=== PATIENT | male | born 1975 | race Caucasian/White ===

== ENCOUNTER → 2017-10-09 | Outpatient (CLI) | payer OTHER ==
[~2017-10-09] MED LIST: AZOR 10-40 MG1 EACH PO; INTEGRA F CAPS1 EACH PO; LEVSIN/SL0.125 MG PO; PERCOCET 5-3251 EACH PO
== END | disposition home or self-care (01) ==
LOC: TOM 10-02 07:45
DX: C18.7 Malignant neoplasm of sigmoid colon (principal)

== ENCOUNTER 2018-11-16 07:30 | Day surgery (SDC) | payer OTHER | END 2018-11-16 14:55 | disposition home or self-care (01) | LOC: AMB-ENDOS 07:30 | DX: K63.5 Polyp of colon (principal); K57.30 Diverticulosis of large intestine without perforation or abscess without bleeding ==